=== PATIENT | female | born 1990 | race Caucasian/White ===

== ENCOUNTER 2017-12-18 08:24 | Emergency (ER) | payer BC ==
[~2017-12-18] VITALS: Ht 157.5 cm; Wt 79.4 kg
[~2017-12-18 08:24] MED LIST: AMOXICILLIN 50500 MG PO; EXCEDRIN CAPLE1 EACH PO; PROMETHAZINE/C118 ML PO; ULTRAM 50MG TAB50 MG PO; ZOFRAN4 MG PO
[2017-12-18] MEDS ORDERED: NORCO 5-325 TA1 EACH PO (10:20)
[2017-12-18] MEDS ORDERED: IBUPROFEN 800800 M1 PO (10:20)
[2017-12-18] MEDS ORDERED: FLEXERIL PO (10:20)
[2017-12-18 10:36] VITALS: BP 105/70
== END 2017-12-18 10:38 | disposition home or self-care (01) ==
LOC: M.ERS 08:24
DX: S16.1XXA Strain of muscle, fascia and tendon at neck level, initial encounter (principal); V49.9XXA Car occupant (driver) (passenger) injured in unspecified traffic accident, initial encounter; Y93.89 Activity, other specified; Y92.89 Other specified places as the place of occurrence of the external cause; Y99.8 Other external cause status; G43.909 Migraine, unspecified, not intractable, without status migrainosus; Z90.49 Acquired absence of other specified parts of digestive tract; Z88.1 Allergy status to other antibiotic agents